=== PATIENT | female | born 1965 | race Two or more races ===

== ENCOUNTER 2018-01-20 10:01 | Outpatient (CLI) | payer OTHER ==
[~2018-01-20 10:01] MED LIST: NEXIUM40 MG/PACK PO; NORFLEX100 MG PO; RELAFEN500 MG PO; SYNTHROID75 MCG PO
== END 2018-01-20 10:11 | disposition home or self-care (01) ==
LOC: LAB 10:01
DX: M06.89 Other specified rheumatoid arthritis, multiple sites (principal); M32.8 Other forms of systemic lupus erythematosus; K75.89 Other specified inflammatory liver diseases

== ENCOUNTER 2018-02-04 09:51 | Outpatient (CLI) | payer OTHER | END 2018-02-04 09:59 | disposition home or self-care (01) | LOC: EDBD 09:51 → NUCLEAR 09:51 | DX: M25.50 Pain in unspecified joint (principal) | CPT/HCPCS: 78315; A9503 ==

== ENCOUNTER 2018-02-12 07:05 | Outpatient (CLI) | payer OTHER | END 2018-02-12 07:10 | disposition home or self-care (01) | LOC: EDBD 07:05 → LAB 07:05 | DX: N94.2 Vaginismus (principal); E34.9 Endocrine disorder, unspecified; N95.1 Menopausal and female climacteric states; R19.00 Intra-abdominal and pelvic swelling, mass and lump, unspecified site; N39.0 Urinary tract infection, site not specified; E55.9 Vitamin D deficiency, unspecified; E78.4 Other hyperlipidemia ==

== ENCOUNTER → 2018-05-19 07:41 | Outpatient (CLI) | payer OTHER | END | disposition home or self-care (01) | LOC: LAB 07:41 | DX: E11.65 Type 2 diabetes mellitus with hyperglycemia (principal); E10.65 Type 1 diabetes mellitus with hyperglycemia; E03.8 Other specified hypothyroidism; E05.90 Thyrotoxicosis, unspecified without thyrotoxic crisis or storm; E78.2 Mixed hyperlipidemia; E55.9 Vitamin D deficiency, unspecified; D64.89 Other specified anemias; N39.0 Urinary tract infection, site not specified; E21.2 Other hyperparathyroidism; E24.8 Other Cushing's syndrome; E28.310 Symptomatic premature menopause; R22.1 Localized swelling, mass and lump, neck ==

== ENCOUNTER 2018-10-14 08:35 | Outpatient (CLI) | payer OTHER | END 2018-10-14 08:56 | disposition home or self-care (01) | LOC: LAB 08:35 | DX: I10 Essential (primary) hypertension (principal); E11.9 Type 2 diabetes mellitus without complications; E03.8 Other specified hypothyroidism; E78.2 Mixed hyperlipidemia; M81.0 Age-related osteoporosis without current pathological fracture; K92.1 Melena; D64.0 Hereditary sideroblastic anemia ==

== ENCOUNTER 2019-01-15 06:41 | Outpatient (CLI) | payer OTHER | END 2019-01-15 17:00 | disposition home or self-care (01) | LOC: LAB 06:41 | DX: M06.89 Other specified rheumatoid arthritis, multiple sites (principal); L40.8 Other psoriasis; H10.89 Other conjunctivitis; J32.8 Other chronic sinusitis; Z51.81 Encounter for therapeutic drug level monitoring ==

== ENCOUNTER → 2019-01-20 | Outpatient (CLI) | payer OTHER | END | disposition home or self-care (01) | LOC: RAD 08:43 → MAMO-SONO 08:45 | DX: M12.9 Arthropathy, unspecified (principal); M19.90 Unspecified osteoarthritis, unspecified site ==

== ENCOUNTER → 2019-03-02 07:26 | Outpatient (CLI) | payer OTHER | END | disposition home or self-care (01) | LOC: LAB 07:26 | DX: E03.8 Other specified hypothyroidism (principal); E55.9 Vitamin D deficiency, unspecified; E11.65 Type 2 diabetes mellitus with hyperglycemia; E78.2 Mixed hyperlipidemia ==

== ENCOUNTER 2020-12-20 07:01 | Outpatient (CLI) | payer OTHER | END 2020-12-20 07:17 | disposition home or self-care (01) | LOC: LAB 07:01 → EDBD 07:01 → LAB 07:17 | PROVIDERS: ATTEND Physical Medicine & Rehabilitation | DX: M54.12 Radiculopathy, cervical region (principal); M06.8A Other specified rheumatoid arthritis, other specified site; M32.8 Other forms of systemic lupus erythematosus; E55.9 Vitamin D deficiency, unspecified ==

== ENCOUNTER 2020-12-27 14:24 | Outpatient (CLI) | payer OTHER | END 2020-12-27 15:36 | disposition home or self-care (01) | LOC: MRI 14:24 | PROVIDERS: ATTEND Physical Medicine & Rehabilitation | DX: M54.2 Cervicalgia (principal); M54.12 Radiculopathy, cervical region | CPT/HCPCS: 72141 ==

== ENCOUNTER 2022-08-27 06:57 | Outpatient (CLI) | payer OTHER | END 2022-08-27 07:07 | disposition home or self-care (01) | LOC: EDBD 06:57 → LAB 06:57 | DX: C73 Malignant neoplasm of thyroid gland (principal); E89.0 Postprocedural hypothyroidism ==

== ENCOUNTER 2022-08-27 07:49 | Outpatient (CLI) | payer OTHER | END 2022-08-27 07:54 | disposition home or self-care (01) | LOC: RAD 07:49 | PROVIDERS: ATTEND Internal Medicine Cardiovascular Disease | DX: M46.47 Discitis, unspecified, lumbosacral region (principal); C73 Malignant neoplasm of thyroid gland ==

== ENCOUNTER 2022-10-14 12:52 | Outpatient (CLI) | payer OTHER | END 2022-10-14 12:56 | disposition home or self-care (01) | LOC: RAD 12:52 | PROVIDERS: ATTEND Physical Medicine & Rehabilitation | DX: M25.531 Pain in right wrist (principal); M25.532 Pain in left wrist; M06.9 Rheumatoid arthritis, unspecified ==

== ENCOUNTER 2024-06-22 07:39 | Outpatient (CLI) | payer OTHER | END 2024-06-22 07:46 | disposition home or self-care (01) | LOC: RAD 07:39 | PROVIDERS: ATTEND Physical Medicine & Rehabilitation | DX: M17.11 Unilateral primary osteoarthritis, right knee (principal) ==

== ENCOUNTER 2025-07-12 11:42 | Outpatient (CLI) | payer OTHER | END 2025-07-12 11:44 | disposition home or self-care (01) | LOC: MRI 11:42 | PROVIDERS: ATTEND Physical Medicine & Rehabilitation | DX: M54.50 Low back pain, unspecified (principal); M54.16 Radiculopathy, lumbar region | CPT/HCPCS: 72148 ==